=== PATIENT | male | born 1970 ===

== ENCOUNTER → 2018-07-06 | Outpatient (REF) ==
--- NOTE | 2018-07-07 02:30 | REP ---
Clinical: Pain and disability. Technique: AP, lateral, bilateral oblique views of the right hand. Findings: Very subtle age-related degenerative changes include periarticular sclerosis and minimal joint space narrowing involving the interphalangeal joints. No further significant degenerative changes are appreciated. No acute fracture or dislocation identified. Small likely chronic foreign body material identified adjacent to the head of the fourth digit middle phalanx. Impression: Mild age-related degenerative changes. Small likely chronic foreign body material at the fourth digit. Electronically Signed by Marcelo Hawk MD 07/07/2018 02:21 A
== END ==
LOC: M SMT 11:31
PROVIDERS: ATTEND Internal Medicine
DX: Z02.71 Encounter for disability determination (principal)